=== PATIENT | female | born 1940 | race African-American/Black ===

== ENCOUNTER 2020-04-04 05:05 | Day surgery (SDC) | payer MEDICARE ==
[2020-04-04] MEDS ORDERED: MIDAZOLAM INJ 2 MG/2 ML VIAL ONE (09:49)
[2020-04-04] MEDS ORDERED: MIDAZOLAM INJ 2 MG/2 ML VIAL IV ONE (09:50)
[2020-04-04] MEDS ORDERED: PROPARACAINE 0.5% OPHTH SOL 15 ML BTTL RIGHT_EYE ONE ×2 (09:51→10:18)
[2020-04-04] MEDS ORDERED: LIDOCAINE 1% 2 ML VIAL INJ ONE ×2 (09:51→10:18)
[2020-04-04] MEDS ORDERED: BRIMONIDINE 0.2% OPHTH DROPS RIGHT_EYE ONE ×2 (09:52→10:18)
[2020-04-04] MEDS ORDERED: TOBRAMYCIN SULF 0.3 % OPHT SOL 1 DROP RIGHT_EYE ONE ×2 (09:52→10:18)
[2020-04-04] MEDS ORDERED: MOXIFLOXACIN HCL (OPHTH) 1 DROP DROPS RIGHT_EYE ONE ×2 (09:52→10:18)
[2020-04-04] MEDS ORDERED: DEXAMETHASONE 0.1% OPHTH SOL 1 DROP RIGHT_EYE ONE ×2 (09:52→10:18)
[2020-04-04] MEDS ORDERED: PROPARACAINE 0.5% OPHTH SOL 15 ML BTTL ONE (10:00)
[2020-04-04] MEDS ORDERED: TROP1%/CYCLOPEN 1%/PHENYL 2.5% DROPS ONE (10:00)
[2020-04-04] MEDS ORDERED: MOXIFLOXACIN HCL (OPHTH) 1 DROP DROPS ONE (10:00)
== END 2020-04-04 11:20 | disposition home or self-care (01) ==
LOC: AMB 05:05
PROVIDERS: ATTEND Ophthalmology
DX: H25.13 Age-related nuclear cataract, bilateral (principal); Z79.82 Long term (current) use of aspirin; Z79.899 Other long term (current) drug therapy
CPT/HCPCS: 00142; 66984; J2250

== ENCOUNTER 2020-05-02 05:36 | Day surgery (SDC) | payer OTHER, MEDICAID ==
[2020-05-02] MEDS ORDERED: TROP1%/CYCLOPEN 1%/PHENYL 2.5% DROPS OPHTH ONE (05:37)
[2020-05-02] MEDS ORDERED: DEXAMETHASONE 0.1% OPHTH SOL 1 DROP LEFT_EYE ONE ×2 (07:28→07:52)
[2020-05-02] MEDS ORDERED: LIDOCAINE 1% 2 ML VIAL INJ ONE ×2 (07:28→07:52)
[2020-05-02] MEDS ORDERED: MOXIFLOXACIN HCL (OPHTH) 1 DROP DROPS LEFT_EYE ONE ×2 (07:28→07:52)
[2020-05-02] MEDS ORDERED: PROPARACAINE 0.5% OPHTH SOL 15 ML BTTL LEFT_EYE ONE ×2 (07:28→07:52)
[2020-05-02] MEDS ORDERED: TOBRAMYCIN SULF 0.3 % OPHT SOL 1 DROP LEFT_EYE ONE ×2 (07:29→07:52)
[2020-05-02] MEDS ORDERED: BRIMONIDINE 0.2% OPHTH DROPS LEFT_EYE ONE ×2 (07:29→07:52)
[2020-05-02] MEDS ORDERED: MIDAZOLAM INJ 2 MG/2 ML VIAL ONE (07:53)
== END 2020-05-02 08:55 | disposition home or self-care (01) ==
LOC: AMB 05:36
PROVIDERS: ATTEND Ophthalmology
DX: H25.12 Age-related nuclear cataract, left eye (principal); I10 Essential (primary) hypertension; Z79.82 Long term (current) use of aspirin; Z79.899 Other long term (current) drug therapy
CPT/HCPCS: 00142; 66984; J2250